=== PATIENT | male | born 1980 | race Caucasian/White ===

== ENCOUNTER 2018-01-07 15:56 | Inpatient (IN) | payer OTHER ==
--- NOTE | 2018-01-07 16:57 | Cat Scan Report ---
FINAL REPORT EXAM: CT HEAD/BRAIN WO CON HISTORY: HX OF MS. CVA S/S AND LEFT FACIAL DROOP FOR 2 DAYS TECHNIQUE: Standard unenhanced CT of the head at 5.0 millimeter axial increments. PRIORS: None. FINDINGS: The ventricular system is normal in size and configuration. There is no evidence for parenchymal volume loss. There is a subtle area of low-density in the right basal ganglia extending into the periventricular white matter consistent with a subacute area of infarct. However, given the age, this could also be due to demyelinating disease. There is no evidence for mass lesion, mass effect, midline shift, acute intracranial hemorrhage, or acute ischemia/ infarction. No evidence for acute skull fracture is seen. No abnormality in the overlying scalp soft tissues is seen. Visualized paranasal sinuses are clear. IMPRESSION: Subtle hypodense area in the right basal ganglia extending to the right periventricular white matter. Findings may be consistent with small area of subacute infarct. Demyelinating disease is included in the differential.
[2018-01-07 16:59] LABS: INR 0.99 (0.87-1.13)
[2018-01-07 17:00] LABS: Partial Thromboplastin Time 31.8 Sec. (24.2-36.6)
[2018-01-07 17:05] LABS: BUN/Creatinine Ratio 18; Blood Urea Nitrogen 11 mg/dL (9-20); Calcium 8.9 mg/dL (8.4-10.2); Hemolysis Index 10
[2018-01-07 17:20] LABS: Hemoglobin TNR gm/dl (11.8-15.2); Red Blood Count TNR M/mm3 (3.65-5.03)
[2018-01-07 17:21] LABS: Hematocrit TNR % (35.5-45.6); Mean Corpuscular HGB Conc TNR % (32-34); Mean Corpuscular Hemoglobin TNR pg (28-32); Mean Corpuscular Volume TNR fl (84-94); Mean Platelet Volume TNR fl (6-12); Platelet Count TNR K/mm3 (140-440); Red Cell Distribution Width TNR % (13.2-15.2)
[2018-01-07 17:22] LABS: Basophils % (Auto) TNR % (0.0-1.8); Eosinophils % (Auto) TNR % (0.0-4.3); Lymphocytes % (Auto) TNR % (13.4-35.0); Monocytes % (Auto) TNR % (0.0-7.3)
[2018-01-07 17:23] LABS: Basophils # (Auto) TNR K/mm3 (0.0-0.1); Eosinophils # (Auto) TNR K/mm3 (0.0-0.4); Lymphocytes # (Auto) TNR K/mm3 (1.2-5.4); Monocytes # (Auto) TNR K/mm3 (0.0-0.8)
[2018-01-07 22:24] LABS: Basophils % (Auto) 0.9 % (0.0-1.8); Eosinophils % (Auto) 0.4 % (0.0-4.3); Hematocrit 42.7 % (35.5-45.6); Hemoglobin 13.8 gm/dl (11.8-15.2); Lymphocytes # (Auto) 0.5 K/mm3 (1.2-5.4); Lymphocytes % (Auto) 9.1 % (13.4-35.0); Mean Corpuscular HGB Conc 32 % (32-34); Mean Corpuscular Hemoglobin 30 pg (28-32); Mean Corpuscular Volume 93 fl (84-94); Monocytes # (Auto) 0.4 K/mm3 (0.0-0.8); Monocytes % (Auto) 6.4 % (0.0-7.3); Platelet Count 259 K/mm3 (140-440); Red Blood Count 4.58 M/mm3 (3.65-5.03); Red Cell Distribution Width 14.4 % (13.2-15.2)
--- NOTE | 2018-01-07 23:15 | Emergency Department Report ---
ED Neuro Deficit HPI - General Chief Complaint: Neuro Symptoms/Deficit Stated Complaint: POSS STROKE Time Seen by Provider: 01/07/18 23:00 Source: patient, family Mode of arrival: Ambulatory Limitations: Physical Limitation - History of Present Illness Initial Comments: 37-year-old male the past medical history asthma, gastric bypass, GERD, migraines, PTSD, and multiple sclerosis presents to the hospital with complaints of stroke symptoms since yesterday. Patient developed left-sided facial droop, slurred speech, heaviness to the left side of his body, and difficulty ambulating yesterday. Symptoms have progressively worsened and peaked today. Symptoms have improved over the last several hours while waiting to be evaluated in the ED. Patient was previously on Tecfidera for multiple sclerosis however, this was discontinued by his neurologist 2 months ago due to decrease in his WBC count. Patient did not have the insurance so follow up since this medication was discontinued. No pain or trauma reported. His history of stroke reported. Neurologist: Dr. Stu Klein in [facility] - Related Data Home Medications: Home Medications Medication Instructions Recorded Confirmed Last Taken Amoxicillin [Amoxicillin CAP] 500 mg PO BID 06/23/15 06/23/15 Unknown Flagyl 500 mg/100 ml 500 mg PO BID 06/23/15 06/23/15 Unknown Sulfamethoxazole/Trimethoprim 500 mg PO BID 06/23/15 06/23/15 Unknown [Bactrim DS TAB] Previous Rx's Medication Instructions Recorded Last Taken Type oxyCODONE /ACETAMINOPHEN [Percocet 1 tab PO Q6HR PRN #20 tablet 06/23/15 Unknown Rx 5/325] Allergies/Adverse Reactions: Allergies Allergy/AdvReac Type Severity Reaction Status Date / Time ibuprofen [From Motrin] Allergy Unknown Verified 01/07/18 16:07 morphine Allergy Unknown Verified 10/05/14 16:26 ED Review of Systems ROS: Stated complaint: POSS STROKE Other details as noted in HPI Comment: All other systems reviewed and negative ED Past Medical Hx - Past Medical History Previous Medical History?: Yes Hx GERD: Yes Hx Headaches / Migraines: Yes (MIGRAINES) Hx Psychiatric Treatment: Yes (PTSD) Hx Asthma: Yes (SINCE A CHILD) Additional medical history: hernia, MS - Surgical History Past Surgical History?: Yes Hx Cholecystectomy: Yes (IN 2005) Additional Surgical History: hernia removal , GASTRIC BYPASS 2014 - Social History Smoking Status: Never Smoker Substance Use Type: Prescribed - Medications Home Medications: Home Medications Medication Instructions Recorded Confirmed Last Taken Type Amoxicillin [Amoxicillin CAP] 500 mg PO BID 06/23/15 06/23/15 Unknown History Flagyl 500 mg/100 ml 500 mg PO BID 06/23/15 06/23/15 Unknown History Sulfamethoxazole/Trimethoprim 500 mg PO BID 06/23/15 06/23/15 Unknown History [Bactrim DS TAB] oxyCODONE /ACETAMINOPHEN [Percocet 1 tab PO Q6HR PRN #20 tablet 06/23/15 Unknown Rx 5/325] ED Neuro Physical Exam - General Limitations: Physical Limitation Suspected Stroke: Yes - NIHSS Assessment Interval: Baseline 1a. Level of Consciousness: alert 1b. LOC Questions: answers correctly 1c. LOC Commands: performs tasks correctly 2. Best Gaze: normal 3. Visual: no visual loss 4. Facial Palsy: normal symmetrical movement 5b. Motor Arm Right: no drift 5a. Motor Arm Left: no drift 6a. Motor Leg Left: no drift 6b. Motor Leg Right: no drift 7. Limb Ataxia: absent 8. Sensory: normal 9. Best Language: no aphasia 10. Dysarthria: normal 11. Extinction/Inattention: no abnormality Total Score: 0 Stroke Severity: No Stroke Symptoms - Other Other exam information: General: No limitations, patient is alert in no acute distress Head exam: Atraumatic, normocephalic Eyes exam: Normal appearance, pupils equal reactive to light, extraocular movements intact ENT: Moist mucous membrane, normal oropharynx Neck exam: Normal inspection, full range of motion, no meningismus nontender Respiratory exam: Clear to auscultation bilateral, no wheezes, rales, crackles Cardiovascular: Normal rate and rhythm, normal heart sounds Abdomen: Soft, nondistended, and nontender, with normal bowel sounds, no rebound, or guarding Extremity: Full range of motion normal inspection no deformity Back: Normal Inspection, full range of motion, no tenderness Neurologic: Alert, oriented x3, cranial nerves intact, no motor or sensory deficit. see NIH stroke scale Psychiatric: normal affect, normal mood Skin: Warm, dry, intact ED Course Vital Signs 01/07/18 16:07 Temperature 98.6 F Pulse Rate 61 Respiratory 20 Rate Blood Pressure 118/59 O2 Sat by Pulse 100 Oximetry - Consultations Consultation #1: 01/07/18 23:18 Dr Watkins neuro consulted, Steroids not recommended at this time since clinical symptoms with rapid improvement more suggestive of stroke as opposed to multiple sclerosis flare. Agreeable to treatment with aspirin to cover for CVA, then MRI differentiates between stroke versus MS flare to guide further treatment. - Lab Data Result diagrams: 01/07/18 22:14 01/07/18 16:30 Lab Results 01/07/18 01/07/18 01/07/18 Range/Units 16:30 16:30 16:30 WBC TNR RBC TNR Hgb TNR Hct TNR MCV TNR MCH TNR MCHC TNR RDW TNR Plt Count TNR Lymph % (Auto) TNR [place] % (Auto) TNR Eos % (Auto) TNR Baso % (Auto) TNR Lymph # TNR [place] # TNR Eos # TNR Baso # TNR Add Manual Diff TNR Seg Neutrophils % TNR Seg Neutrophils # TNR PT 13.6 (12.2-14.9) Sec. INR 0.99 (0.87-1.13) APTT 31.8 (24.2-36.6) Sec. Thrombin Time (15.1-19.6) Sec. Sodium 137 (137-145) mmol/L Potassium 4.4 (3.6-5.0) mmol/L Chloride 98.4 (98-107) mmol/L Carbon Dioxide 30 (22-30) mmol/L Anion Gap 13 mmol/L BUN 11 (9-20) mg/dL Creatinine 0.6 L (0.8-1.5) mg/dL Estimated GFR > 60 ml/min BUN/Creatinine Ratio 18 % Glucose 95 (75-100) mg/dL Calcium 8.9 (8.4-10.2) mg/dL Troponin T < 0.010 (0.00-0.029) ng/mL 01/07/18 01/07/18 Range/Units 16:30 22:14 WBC 5.6 RBC 4.58 Hgb 13.8 Hct 42.7 MCV 93 MCH 30 MCHC 32 RDW 14.4 Plt Count 259 Lymph % (Auto) 9.1 L [place] % (Auto) 6.4 Eos % (Auto) 0.4 Baso % (Auto) 0.9 Lymph # 0.5 L [place] # 0.4 Eos # 0.0 Baso # 0.0 Add Manual Diff Seg Neutrophils % 83.2 H Seg Neutrophils # 4.6 PT (12.2-14.9) Sec. INR (0.87-1.13) APTT (24.2-36.6) Sec. Thrombin Time 15.1 (15.1-19.6) Sec. Sodium (137-145) mmol/L Potassium (3.6-5.0) mmol/L Chloride (98-107) mmol/L Carbon Dioxide (22-30) mmol/L Anion Gap mmol/L BUN (9-20) mg/dL Creatinine (0.8-1.5) mg/dL Estimated GFR ml/min BUN/Creatinine Ratio % Glucose (75-100) mg/dL Calcium (8.4-10.2) mg/dL Troponin T (0.00-0.029) ng/mL - EKG Data -: EKG Interpreted by Me (nonspecific intraventricular delay) EKG shows normal: sinus rhythm (58), axis (qrs 78), QRS complexes (qrsd 130), ST -T waves (no stemi/t inv) Rate: bradycardia (58) When compared to previous EKG there are: changes noted (04/2013) - Radiology Data Radiology results: report reviewed CT head noncontrast: subtle hypodense area in the right basal ganglia extending to the right periventricular white matter. Findings may be consistent with small area of subacute infarct. Demyelinating disease included in the differential. - Medical Decision Making Left-sided facial droop and weakness with slurred speech now resolved Case discussed with neurologist who suggests symptoms were suggestive of TIA as opposed to MS flare Recommend an MRI to guide further treatment to determine a stroke workup is necessary versus MS treatment Patient states he does take ibuprofen or aspirin due to his previous gastric bypass surgery but denies allergy or history or GI hemorrhage. Enteric-coated aspirin with Pepcid ordered Hospitalist informed for admission - Differential Diagnosis MS flare, CVA, ICH - Thrombolytic Inclusion/Exclusion Thrombolytic Exclusion Criteria: Symptom Onset > 3 Hours Thrombolytic Contraindications: Rapidily Improving s/s Critical Care Time: No Critical care attestation.: If time is entered above; I have spent that time in minutes in the direct care of this critically ill patient, excluding procedure time. ED Disposition Clinical Impression: Transient neurologic deficit, Multiple sclerosis, Ischemic changes on head CT Disposition: OP ADMIT IP TO THIS HOSP Is pt being admited?: Yes Does the pt Need Aspirin: Yes Condition: Stable Time of Disposition: 23:27 (Dr Jordan/hosp)
[2018-01-07] MEDS ORDERED: ASPIRIN PO ONE (23:17)
[2018-01-07] MEDS ORDERED: ECOTRIN PO ONE (23:20)
[2018-01-07] MEDS ORDERED: PEPCID IV ONE (23:20)
--- NOTE | 2018-01-07 23:41 | History and Physical Report ---
History of Present Illness Date of examination: 01/07/18 History of present illness: 37-year-old man with a history of multiple sclerosis comes emergency room with complaints of left facial droop, slurred speech and left upper extremity weakness that started yesterday. His symptoms is getting better but he is not back to baseline Review of systems Constitutional: no weight loss, chills Ears, eyes, nose, mouth and throat: no nasal congestion, no nasal discharge, no sinus pressure, no vision change, no red eye. Neck: No neck pain or rigidity. Cardiovascular: no chest pain, palpitations Respiratory: No cough, shortness of breath Gastrointestinal: no abdominal pain, hematochezia Genitourinary : no dysuria, frequency , no hematuria Musculoskeletal: no joint swelling or muscle ache Integumentary: no rash, no pruritis Neurological: no parathesias, no numbness Endocrine: no cold or heat intolerance, no polyuria or polydipsia Hematologic/Lymphatic: no easy bruising, no easy bleeding, no gland swelling Allergic/Immunologic: no urticaria, no angioedema. PAST MEDICAL HISTORY: Multiple sclerosis PAST SURGICAL HISTORY: Gastric bypass, hernia repair, cholecystectomy SOCIAL HISTORY: Denies alcohol, tobacco, drugs FAMILY HISTORY: Hypertension Medications and Allergies Allergies Allergy/AdvReac Type Severity Reaction Status Date / Time ibuprofen [From Motrin] Allergy Unknown Verified 01/07/18 16:07 morphine Allergy Unknown Verified 10/05/14 16:26 Home Medications Medication Instructions Recorded Confirmed Last Taken Type Amoxicillin [Amoxicillin CAP] 500 mg PO BID 06/23/15 06/23/15 Unknown History Flagyl 500 mg/100 ml 500 mg PO BID 06/23/15 06/23/15 Unknown History Sulfamethoxazole/Trimethoprim 500 mg PO BID 06/23/15 06/23/15 Unknown History [Bactrim DS TAB] oxyCODONE /ACETAMINOPHEN [Percocet 1 tab PO Q6HR PRN #20 tablet 06/23/15 Unknown Rx 5/325] Exam - Physical Exam Narrative exam: Gen. appearance: Patient lying in bed, no apparent distress HEENT: Normocephalic, atraumatic, pupils equally round and reactive to light, extraocular movement intact, and no sclericterus,. No JVD or thyromegaly or nodule,neck supple, no carotid bruit ,mucous membranes moist, no exudate or erythema Heart: S1, S2, regular rate and rhythm Lungs: Clear to auscultation bilaterally, breathing comfortable Abdomen: Positive bowel sounds, nontender, nondistended, no organomegaly Extremity: No edema, cyanosis, clubbing Skin: No rash, nodules, warm, dry Neuro: Oriented 3, cranial nerves II-12 intact, speech is fluent, left upper extremity 4/5 and sensory intact - Constitutional Vitals: Temp Pulse Resp BP Pulse Ox 98.6 F 61 20 118/59 100 01/07/18 16:07 01/07/18 16:07 01/07/18 16:07 01/07/18 16:07 01/07/18 16:07 Results - Labs CBC & Chem 7: 01/07/18 22:14 01/07/18 16:30 Labs: Abnormal lab results 01/07/18 01/07/18 Range/Units 16:30 22:14 Lymph % (Auto) 9.1 L (13.4-35.0) % Lymph # 0.5 L (1.2-5.4) K/mm3 Seg Neutrophils % 83.2 H (40.0-70.0) % Creatinine 0.6 L (0.8-1.5) mg/dL - Imaging and Cardiology EKG: image reviewed CT Scan - head: report reviewed Assessment and Plan Assessment Acute CVA Multiple sclerosis Plan Admit to medicine Start Plavix, statin Obtain MRI of the head, carotid Doppler, echo Do neurochecks, swallow screen Consult neurology, physical and occupational therapy DVT prophylaxis
[2018-01-08] MEDS ORDERED: TYLENOL PO PRN (00:49)
[2018-01-08] MEDS ORDERED: SODIUM CHLORIDE FLUSH SYRINGE 10 ML IV PRN (00:49)
[2018-01-08] MEDS ORDERED: PHENERGAN PR PRN (00:49)
[2018-01-08] MEDS ORDERED: APRESOLINE IV PRN (00:49)
[2018-01-08] MEDS ORDERED: DULCOLAX PR PRN (00:49)
[2018-01-08] MEDS ORDERED: ZOFRAN IV PRN (00:49)
[2018-01-08] MEDS ORDERED: MILK OF MAGNESIA PO PRN (00:49)
[2018-01-08] MEDS ORDERED: REGLAN PO PRN (00:49)
--- NOTE | 2018-01-08 10:31 | Progress Note ---
Assessment and Plan Acute CVA Multiple sclerosis Plan Continue with ASA, Plavix, statin F/u with MRI of the head, carotid Doppler, echo Contine with neurochecks, swallow screen Consult neurology, physical and occupational therapy DVT prophylaxis Subjective Date of service: 01/08/18 Principal diagnosis: (Acute stroke,MS Interval history: Patient is seen and examined. Still has left-sided weakness with slurred speech. Discussed with nursing staff. No overnight event reported to me. Reviewed radiological and Laboratory data. Objective - Exam Narrative Exam: Constitutional: Well-nourished well-developed. In no distress Head: Normocephalic atraumatic Eyes: Pupils are equal round and reactive to light Nose: No enlarged turbinates, no septal deviation. Mouth: Moist mucous membranes. Neck: Supple no thyromegaly. No bruit. No JVD Heart: Regular rate and rhythm, S1-S2 abnormal. No rubs murmurs or gallop Lungs: Clear to auscultation bilaterally no rales or rhonchi Abdomen: Soft, nontender. Bowel sound are present. Extremities: No edema no cyanosis and no clubbing. Neuro: Alert oriented Oriented x3. Left-sided weakness and mild facial droop. Skin: No rashes no hyperemic spots Psychiatry: Euthymic. Calm. - Constitutional Vitals: Vital Signs - 12hr 01/07/18 01/07/18 01/08/18 23:00 23:30 00:00 Temperature Pulse Rate 66 62 67 Respiratory 16 15 16 Rate Blood Pressure 126/62 115/77 111/47 Blood Pressure [Left] O2 Sat by Pulse 100 99 99 Oximetry 01/08/18 01/08/18 01/08/18 00:16 00:30 00:46 Temperature Pulse Rate 61 56 L 61 Respiratory 15 18 17 Rate Blood Pressure 124/82 122/78 122/78 Blood Pressure [Left] O2 Sat by Pulse 99 98 100 Oximetry 01/08/18 01/08/18 01/08/18 00:52 01:09 01:30 Temperature Pulse Rate 60 68 Respiratory 16 17 Rate Blood Pressure 113/73 Blood Pressure [Left] O2 Sat by Pulse 100 100 Oximetry 01/08/18 01/08/18 01/08/18 01:46 02:00 02:10 Temperature 97.8 F Pulse Rate 75 65 65 Respiratory 19 16 18 Rate Blood Pressure 114/64 118/55 Blood Pressure 109/74 [Left] O2 Sat by Pulse 100 100 100 Oximetry 01/08/18 01/08/18 01/08/18 02:16 02:30 03:13 Temperature 97.5 F L Pulse Rate 67 63 58 L Respiratory 16 17 20 Rate Blood Pressure 116/62 113/73 116/64 Blood Pressure [Left] O2 Sat by Pulse 100 100 98 Oximetry 01/08/18 01/08/18 01/08/18 04:06 04:12 07:27 Temperature 97.4 F L Pulse Rate 56 L Respiratory 20 Rate Blood Pressure 109/74 109/74 108/63 Blood Pressure [Left] O2 Sat by Pulse 97 Oximetry 01/08/18 08:39 Temperature Pulse Rate 53 L Respiratory Rate Blood Pressure Blood Pressure [Left] O2 Sat by Pulse Oximetry - Labs CBC & Chem 7: 01/07/18 22:14 01/07/18 16:30 Labs: Abnormal lab results 01/07/18 01/07/18 Range/Units 16:30 22:14 Lymph % (Auto) 9.1 L (13.4-35.0) % Lymph # 0.5 L (1.2-5.4) K/mm3 Seg Neutrophils % 83.2 H (40.0-70.0) % Creatinine 0.6 L (0.8-1.5) mg/dL
[2018-01-08] MEDS: LOVENOX SUB-Q SCH (11:39)
[2018-01-08] MEDS: PLAVIX PO SCH (11:39)
--- NOTE | 2018-01-08 12:04 | Magnetic Resonance Report ---
MRI BRAIN WITHOUT CONTRAST: 01/08/18 23:41:00 CLINICAL: Stroke. History of MS and left facial droop for several days. Comparison: CT Head 01/07/18 and 04/27/13 TECHNIQUE: Axial diffusion, T1, T2, gradient echo T2*,coronal and axial FLAIR, and sagittal T1 sequences on a 1.5 Jessica magnet without contrast. FINDINGS: Normal ventricles and sulci. No restricted diffusion. Extensive bilateral periventricular white matter hyperintensities FLAIR and T2. These fingerlike periventricular hyperintensities are typical of Butts fingers and MS. In addition, a round circumscribed 1.9 x 1.3 cm right parietal periventricular white matter lesion and an adjacent more posterior oval circumscribed 1.3 x 1.0 cm right posterior parietal periventricular white matter lesion. The larger lesion originates in the right basal ganglia and correlates with the hypodensity on CT. No mass or mass effect. No hemorrhage, edema or extra-axial collection. Normal pituitary and optic chiasm. The brainstem and cerebellum are normal. Intact vascular flow voids. Mild bilateral ethmoid sinusitis. The orbits, and soft tissues are normal. Normal calvarium and skull base. IMPRESSION: 1. No evidence of acute/subacute infarct or hemorrhage. 2. Extensive bilateral periventricular white matter disease typical of multiple sclerosis. 3. 1.9 cm and 1.3 cm right posterior parietal periventricular white matter lesions are also likely MS lesions. A contrast brain MRI may be helpful.
--- NOTE | 2018-01-09 01:46 | Consultation ---
NEUROLOGICAL CONSULTATION REASON FOR CONSULTATION: Possible stroke, history of multiple sclerosis. HISTORY OF PRESENT ILLNESS: The patient is a 37-year-old [place] male who was referred because of a history of multiple sclerosis as well as possibility of stroke. The history was given by the patient and also by the who is at the bedside. He had a diagnosis of multiple sclerosis way back in 2016. He had episode of left-sided body problem for which he was seen by a neurologist. He was worked up, many tests were done, but they could not specify. He apparently might have received some steroids. Then, he ended up to take Tecfidera up to a dose now of 240 mg b.i.d. He has been taking that without any problems. About 2 months ago, they stopped the Tecfidera because his white count seems to be getting lower and he has not taken that medication. For some reason, he was not followed probably because they had no money to see the doctor and he has no insurance. He had some problem this past Saturday and that he noticed some weakness and slurring of his speech, but he did not bother his . Then, he woke up the following morning and the speech was getting bad, the weakness of the left side of the face, weakness of the left arm and the leg and numbness also. They called a neurologist and they were told to make an appointment. They have an appointment today, but because the symptom seems to be getting worse, his brought him to the hospital yesterday. He was seen and admitted. He had a CT scan of the brain, impression of which showed a subtle hypodense area in the right basal ganglia extending to the right periventricular white matter. This could be consistent with a small area of subacute infarct, but possible demyelinating disease. The patient has been here, but he has improved. His speech is not that slurred. He is moving his left arm better. Other symptoms he has is, he has an inappropriate affect. REVIEW OF OTHER SYSTEMS: None other than those mentioned above. PAST MEDICAL HISTORY: Diagnosed with multiple sclerosis. Otherwise, he is stable. No other medical problems. No diabetes, hypertension, high cholesterol. PAST SURGICAL HISTORY: The patient has a bypass surgery. He used to weigh 500 pounds, incidentally the also weighs about 400 pounds. Both of them had gastric bypass. He had a herniorrhaphy, gallbladder surgery. Status of MS, the patient has deficit, but he could walk around. SOCIAL HISTORY: The patient is disabled. He cannot work. He lives with his . They have children, almost teenager. The patient does not smoke, does not drink alcoholic beverages. Denies any drugs. ALLERGIES: MORPHINE. PHYSICAL EXAMINATION: GENERAL: Revealed a fairly developed, fairly nourished who is in no acute distress. The patient weighs 209 pounds. He has an appropriate affect. VITAL SIGNS: Temperature 98.6, pulse rate 61, respiration 20, saturation 100%, blood pressure 118/69. HEENT: Unremarkable. Prominent teeth. No intracranial or intraorbital bruit. NECK: Short. Supple. No carotid bruit. HEART: Regular in rhythm. LUNGS: Sounds clear. ABDOMEN: Has sagging skin. He has a previous bypass and has lost significant weight. He has a scar from previous surgery. EXTREMITIES: Still swollen, big, chronic stasis. Venous thrombosis also. He has also very prominent veins. NEUROLOGIC: Revealed the patient who has ____ mild dementia. Inappropriate affect. His speech, however, sounded normal now. Follows verbal command. Cranial nerves is otherwise unremarkable except that the tongue is deviating to the left side. Motor examination: He has very strong upper and lower extremities. Sensory testing decreased in the lower extremities. He has edema. Hyperpigmentation. The patient could walk, but had some difficulty. CLINICAL IMPRESSION: The sudden episode together with significant and rapid improvement might suggest a vascular event rather than a demyelinating episode. I suspect that this patient had the chronic changes in MS, but developed a vascular event, although he has no risk factor other than his nutrition. RECOMMENDATIONS: The patient already had an MRI of the brain before I saw him, there was no contrast given; however, this needs to be reviewed. The question raised about restarting him on his Tecfidera or other medication. This has to be I believe done by his previous neurologist who knew him better and who has been treating him chronically. Once he is well, he has to be sent there for an immediate reevaluation considering starting the Tecfidera. Consider also carotid ultrasound and a 2D echo. Sixty minutes involving the above evaluation and management of this patient, more than 50% in the coordination of care. Thank you for this referral. JOB# [id number] AMNA/LUIGI
[2018-01-09 06:51] LABS: Chol/HDL Ratio 1.87 %
--- NOTE | 2018-01-09 09:18 | Progress Note ---
Assessment and Plan 37-year-old man with a history of multiple sclerosis comes emergency room with complaints of left facial droop, slurred speech and left upper extremity weakness that started yesterday. His symptoms is getting better but he is not back to baseline Acute CVA Multiple sclerosis Plan Continue with ASA, Plavix, statin MRI of the head showed no acute/subacute infarct or hemorrhage. 2 periventricular white matter lesions likely MS. May benefit from MRA carotid Doppler was performed ECHO showed EF of 40-45% Continue with neurochecks, swallow screen Consult neurology, physical and occupational therapy DVT prophylaxis Steroids for management of MS Subjective Date of service: 01/09/18 Principal diagnosis: (Acute stroke,MS Interval history: Patient is seen and examined. Still has left-sided weakness with slurred speech. Discussed with nursing staff. No overnight event reported to me. Reviewed radiological and Laboratory data. Discussed with family member in the room. Objective - Exam Narrative Exam: Constitutional: Well-nourished well-developed. In no distress Head: Normocephalic atraumatic Eyes: Pupils are equal round and reactive to light Nose: No enlarged turbinates, no septal deviation. Mouth: Moist mucous membranes. Neck: Supple no thyromegaly. No bruit. No JVD Heart: Regular rate and rhythm, S1-S2 abnormal. No rubs murmurs or gallop Lungs: Clear to auscultation bilaterally no rales or rhonchi Abdomen: Soft, nontender. Bowel sound are present. Extremities: No edema no cyanosis and no clubbing. Neuro: Alert oriented Oriented x3. Left-sided weakness and mild facial droop. Skin: No rashes no hyperemic spots Psychiatry: Euthymic. Calm. Conversational - Constitutional Vitals: Vital Signs - 12hr 01/09/18 01/09/18 01/09/18 00:40 03:35 04:52 Temperature 98.9 F Pulse Rate 61 59 L 63 Respiratory 20 Rate Blood Pressure 111/52 Blood Pressure 114/62 [Left] O2 Sat by Pulse 97 98 Oximetry 01/09/18 01/09/18 05:18 07:27 Temperature 97.5 F L 97.5 F L Pulse Rate 58 L 68 Respiratory 18 18 Rate Blood Pressure 106/58 Blood Pressure 111/58 [Left] O2 Sat by Pulse 98 99 Oximetry - Labs CBC & Chem 7: 01/07/18 22:14 01/07/18 16:30 Labs: Abnormal lab results 01/09/18 Range/Units 04:34 HDL Cholesterol 63 H (40-59) mg/dL
[2018-01-09] MEDS: PLAVIX PO SCH (10:57)
[2018-01-09] MEDS: LOVENOX SUB-Q SCH (10:57)
--- NOTE | 2018-01-10 05:06 | Physician Progress Note ---
SUBJECTIVE: This patient was seen yesterday because of history of multiple sclerosis. At the same time, he had an episode, which suggested he probably had a stroke. He said that he is feeling much better today. In fact, I saw him walking at the hallway. He has no further complaint of this weakness that he had before. He has been stopped on Tecfidera and is supposed to see his neurologist. OBJECTIVE: GENERAL: Overall, examination is good. He is walking around. NEUROLOGIC: He has no evidence of dementia or encephalopathy, but before he has had some inappropriate affect. EXTREMITIES: He has strong extremities. No change in the examination. IMAGING: His MRI of the brain showed changes of chronic multiple sclerosis, but unfortunately there was no contrast given; however, no evidence of stroke. ASSESSMENT: Episode that he had is more suggestive of vascular event, but his basic status is not compatible with this. It could be an acute episode of multiple sclerosis. PLAN: Follow up the carotid ultrasound and 2D echo. As mentioned and discussed with the attending to make sure that once he is discharged for him to follow his previous neurologist and consider putting him on anti-immunomodulating medicine for his multiple sclerosis. JOB# [id number] AMNA/LUIGI
[2018-01-10] MEDS: PLAVIX PO SCH (10:19)
[2018-01-10] MEDS: LOVENOX SUB-Q SCH (10:19)
--- NOTE | 2018-01-10 17:08 | Discharge Summary ---
Providers - Providers Date of Admission: 01/07/18 23:41 Date of discharge: 01/10/18 Attending physician: GARRETT COTTON 01/08/18 Consult to Physician [CONS] Routine Comment: Consulting Provider: CHEYENNE HARDIN Physician Instructions: Reason For Exam: cva 01/08/18 00:49 Occupational Therapy Evaluate and Treat [CONS] Routine Comment: Reason For Exam: Neuro deficits Physical Therapy Evaluation and Treat [CONS] Routine Comment: Reason For Exam: Neuro deficits Primary care physician: CARLOS NICOLE Hospitalization Condition: Stable Disposition: DC-01 TO HOME OR SELFCARE Time spent for discharge: 31 min Core Measure Documentation - Palliative Care Palliative Care/ Comfort Measures: Not Applicable - Core Measures Any of the following diagnoses?: none Exam - Constitutional Vitals: Temp Pulse Resp BP Pulse Ox 97.9 F 66 18 110/55 98 01/10/18 12:46 01/10/18 12:46 01/10/18 12:46 01/10/18 12:46 01/10/18 12:46 General appearance: Present: no acute distress, well-nourished - EENT Eyes: Present: PERRL, EOM intact - Neck Neck: Present: supple, normal ROM - Respiratory Respiratory effort: normal Respiratory: bilateral: diminished, negative: rales, rhonchi, wheezing - Cardiovascular Rhythm: regular Heart Sounds: Present: S1 & S2 - Extremities Extremities: no ischemia, No edema - Abdominal General gastrointestinal: Present: soft, non-tender, non-distended, normal bowel sounds - Integumentary Integumentary: Present: clear, warm - Musculoskeletal Musculoskeletal: strength equal bilaterally - Psychiatric Psychiatric: appropriate mood/affect, cooperative - Neurologic Neurologic: CNII-XII intact, moves all extremities Plan Activity: advance as tolerated, fall precautions Diet: regular Additional Instructions: f/u private neurologist in 1 week. MRI with contrast as needed. You have any new episodes of weakness/slurring of speech, contact M.D. or go to emergency room Follow up with: CARLOS NICOLE MD [Primary Care Provider] - 3-5 Days Prescriptions: AtorvaSTATin [Lipitor] 40 mg PO QHS #30 tablet Clopidogrel [Plavix] 75 mg PO QDAY #30 tablet
[2018-01-10 17:22] VITALS: BP 107/64
== END 2018-01-10 18:41 | disposition home or self-care (01) | DRG 66 ==
LOC: ED 15:56 → 4A 23:41
PROVIDERS: ADMIT Internal Medicine; ATTEND Internal Medicine
DX: I63.9 Cerebral infarction, unspecified (principal); G35 Multiple sclerosis; J45.909 Unspecified asthma, uncomplicated; K21.9 Gastro-esophageal reflux disease without esophagitis; G43.909 Migraine, unspecified, not intractable, without status migrainosus; G83.24 Monoplegia of upper limb affecting left nondominant side; F43.10 Post-traumatic stress disorder, unspecified; Z98.84 Bariatric surgery status; Z88.6 Allergy status to analgesic agent; Z88.5 Allergy status to narcotic agent; Z90.49 Acquired absence of other specified parts of digestive tract; Z82.49 Family history of ischemic heart disease and other diseases of the circulatory system
CPT/HCPCS: 36415; 70450; 70551; 80048; 80061; 82962; 84484; 85025; 85610; 85670; 85730; 93005; 93010; 93306; 93880; A9270-GY; J1650